=== PATIENT | male | born 1965 | race Two or more races ===

== ENCOUNTER 2023-06-08 18:09 | Emergency (ER) | payer BC, OTHER ==
[2023-06-08] MEDS ORDERED: Dexamethasone 4 MG TAB ONE (19:49)
== END 2023-06-08 20:11 | disposition home or self-care (01) ==
LOC: CSHERS 18:09
DX: L25.9 Unspecified contact dermatitis, unspecified cause (principal); E11.9 Type 2 diabetes mellitus without complications; I10 Essential (primary) hypertension
CPT/HCPCS: 99282; J8540